=== PATIENT | male | born 1950 | race Caucasian/White ===

== ENCOUNTER 2020-05-14 22:11 | Observation (INO) | payer MEDICARE, OTHER ==
--- NOTE | 2020-05-14 22:41 | ED ---
Neck Injury/Pain HPI - General Chief Complaint: Neck Pain/Injury Stated Complaint: Neck Pain Time Seen by Provider: 05/14/20 22:31 Mode of arrival: ambulatory Limitations: no limitations - History of Present Illness Initial Comments: Jonh is a pleasant 70 male who presents to the ER today for evaluation of intractable neck pain. Patient reports on of last week he went for a jog, he subsequently had some achy pains in his leg and hip and states that a couple hours afterwards he felt a tightening in his neck. Patient reports is progressively worsened over the course of the weekend. He states that today he cannot move his neck at all and he has pain radiating down to his left arm. He has no numbness in arm no weakness just a burning pain with occasional tingling. Patient reports he has a history of chronic low back pain but no history of neck pain. He was seen in an urgent care this morning and received a shot of steroids and prescription for steroids and muscle relaxers but feels like he is getting worse. She denies any fevers, chills, nausea, vomiting any recent illness or injury. He denies any history of cancers. - Related Data Allergies Allergy/AdvReac Type Severity Reaction Status Date / Time No Known Allergies Allergy Verified 05/14/20 22:18 Review of Systems ROS Statement: Those systems with pertinent positive or pertinent negative responses have been documented in the HPI. ROS Other: All systems not noted in ROS Statement are negative. Past Medical History Past Medical History: Hypertension, Myocardial Infarction (non Q-wave) History of Any Multi-Drug Resistant Organisms: None Reported Additional Past Surgical History / Comment(s): back surgery. cardiac stent x 3. knee surgery Past Psychological History: No Psychological Hx Reported Smoking Status: Never smoker Past Alcohol Use History: Rare Past Drug Use History: None Reported General Exam - General Exam Comments Initial Comments: Physical Exam GENERAL: Appears uncomfortable, will not range his neck HENT: Normocephalic, Atraumatic. EYES: PERRL, EOMI PULMONARY: Unlabored respirations. CARDIOVASCULAR: RRR Warm and well perfused extremities ABDOMEN: Non-distended SKIN: No rashes or bruising : Deferred NEUROLOGIC: Alert and oriented Normal speech Normal gait Normal abduction/flexion/extension of the shoulders bilaterally Normal sensation in bilateral upper extremities MUSCULOSKELETAL: Looking forward, will not range his neck Full ROM of extremities No weakness in extremities, PSYCHIATRIC: No SI/HI Limitations: no limitations Course Vital Signs 05/14/20 05/15/20 22:12 02:25 Temperature 98.3 F 98.4 F Pulse Rate 79 70 Respiratory 18 16 Rate Blood Pressure 141/90 126/88 O2 Sat by Pulse 96 95 Oximetry Medical Decision Making - Medical Decision Making Patient was seen and evaluated history is obtained from patient Previously healthy 70-year-old male with what appears to be mechanical in his neck, physical exam does reveal some significant muscle spasm with no bony tenderness No focal neurologic deficits Given the patient's age CT scan was ordered for evaluation of the neck Patient was treated with Norflex and morphine IM Computed tomography scan shows multi-facet arthropathy, no significant acute abnormalities Patient was reevaluated and reports only minimal improvement, at this time I don't feel the patient is safe to go home given his limited range of motion and inability to tolerate movement. I don't feel the patient is safe to be discharged home on high-dose narcotics given his advanced age. Patient will be placed in observation unit for evaluation by orthopedic surgery and possibly pain management. Patient did have some improvement in pain after IV dilaudid - Lab Data Result diagrams: 05/15/20 00:50 05/15/20 00:50 Disposition Clinical Impression: Cervical radiculopathy, Neck pain Disposition: ADMITTED IP TO THIS HOSP Condition: Stable Is patient prescribed a controlled substance at d/c from ED?: No
[2020-05-14] MEDS ORDERED: MORPHINE SULFATE 4 MG/ML SYRINGE IM STA (23:36)
[2020-05-14] MEDS ORDERED: ORPHENADRINE 30 MG/ML 2 ML VIAL IM STA (23:36)
--- NOTE | 2020-05-14 23:49 | CT ---
EXAMINATION TYPE: CT cervical spine wo con DATE OF EXAM: 05/14/2020 COMPARISON: None HISTORY: neck pain CT DLP: 434.30 mGycm Automated exposure control for dose reduction was used. Images were obtained from the skull base to T1 vertebra with no contrast. Cervical vertebra have normal alignment. There is some spurring and mild disc space narrowing from C4 to C7. There is mild multilevel cervical hypertrophic facet arthropathy. Prevertebral soft tissues a re intact. The skull base is intact. There is normal aeration of the temporal bones. There is no evid ence of a fracture. IMPRESSION: Multilevel cervical spondylotic changes. No fracture seen.
[2020-05-15] MEDS ORDERED: HYDROmorphone 1 MG/ML 1 ML SYRINGE IVP STA (00:43)
[2020-05-15] MEDS ORDERED: NALOXONE 0.4 MG/ML 1 ML VIAL IV PRN (00:43)
[2020-05-15 00:59] LABS: Basophils # (A) 0.1 k/uL (0-0.2); Basophils % (A) 1 %; Eosinophils # (A) 0.2 k/uL (0-0.7); Eosinophils % (A) 2 %; HCT 45.8 % (39.0-53.0); HGB 15.2 gm/dL (13.0-17.5); Lymphocytes # (A) 1.7 k/uL (1.0-4.8); Lymphocytes % (A) 18 %; MCH 33.1 pg (25.0-35.0); MCHC 33.3 g/dL (31.0-37.0); MCV 99.5 fL (80.0-100.0); Mean Platelet Volume 6.9; Monocytes # (A) 0.6 k/uL (0-1.0); Monocytes % (A) 7 %; Neutrophils # (A) 6.7 k/uL (1.3-7.7); Neutrophils % (A) 71 %; Platelet Count 168 k/uL (150-450); RDW 13.5 % (11.5-15.5); WBC 9.4 k/uL (3.8-10.6)
[2020-05-15 01:12] LABS: ALT 30 U/L (4-49); AST 41 U/L (17-59); African American GFR (CKD) >90 (>60 ml/min/1.73 sqM); Albumin 4.4 g/dL (3.5-5.0); Alkaline Phosphatase 77 U/L (38-126); Anion Gap 8 mmol/L; Blood Urea Nitrogen 12 mg/dL (9-20); Calcium 9.4 mg/dL (8.4-10.2); Carbon Dioxide 24 mmol/L (22-30); Chloride 102 mmol/L (98-107); Glucose 128 mg/dL (74-99); Non-African American GFR(CKD) >90 (>60 ml/min/1.73 sqM); Potassium 4.4 mmol/L (3.5-5.1); Sodium 134 mmol/L (137-145); Total Bilirubin 1.6 mg/dL (0.2-1.3); Total Protein 7.2 g/dL (6.3-8.2)
[2020-05-15] MEDS ORDERED: MORPHINE SULFATE 4 MG/ML SYRINGE IV PRN (01:30)
[2020-05-15] MEDS: HYDROmorphone 0.5 MG/0.5 ML SYRINGE IVP PRN ×3 (04:12→20:43)
--- NOTE | 2020-05-15 09:57 | P.HPIM ---
History of Present Illness this is a pleasant 70 years old male with past medical history of coronary artery disease in 2012, status post 3 stents and he was on baby aspirin at 81 mg and Lipitor.he was told he is prediabetic last March. He does not follow up with PCP here and he recently moved from [place] last spring. Presents because of neck pain of 7 days duration, radiating across the back and to the left shoulder, left anterior chest and left lateral arm, associated with some limitation of abduction of the shoulder. He denies trauma. Also he is peeing a lot. no dizziness or abdominal pain, no problems with his bowel function. He walks with no difficulty. he denies smoking, alcohol or illicit drugs Vitas looks stable, labs include an unremarkable BMP except for mild low sodium at 134, creatinine normal, sugar is 128. Total bilirubin is 1.6, AST, ALT and other liver enzymes were normal, C-reactive protein is 31. CT of the cervical spine without contrast showing multilevel cervical spondylitic changes. No fracture seen. Review of Systems CONSTITUTIONAL: No fever, no malaise, no fatigue. HEENT: No recent visual problems or hearing problems. Denied any sore throat. CARDIOVASCULAR: No orthopnea, PND, no palpitations, no syncope. PULMONARY: No shortness of breath, no cough, no hemoptysis. GASTROINTESTINAL: No diarrhea, no nausea, no vomiting, no abdominal pain. Normoactive bowel sounds. NEUROLOGICAL: No headaches, no weakness, no numbness. HEMATOLOGICAL: Denies any bleeding or petechiae. GENITOURINARY: Denies any burning micturition, frequency, or urgency. MUSCULOSKELETAL/RHEUMATOLOGICAL: Denies any joint pain, swelling, or any muscle pain. ENDOCRINE: Denies any polyuria or polydipsia. Past Medical History Past Medical History: Hypertension, Myocardial Infarction (non Q-wave) Last Myocardial Infarction Date:: 2012 History of Any Multi-Drug Resistant Organisms: None Reported Additional Past Surgical History / Comment(s): back surgery. cardiac stent x 3. knee surgery Past Anesthesia/Blood Transfusion Reactions: No Reported Reaction Past Psychological History: No Psychological Hx Reported Smoking Status: Never smoker Past Alcohol Use History: Rare Past Drug Use History: None Reported Medications and Allergies Allergies Allergy/AdvReac Type Severity Reaction Status Date / Time No Known Allergies Allergy Verified 05/15/20 09:24 Physical Exam Vitals: Vital Signs Temp Pulse Pulse Resp BP BP Pulse Ox 05/15/20 07:36 98.2 F 75 14 128/83 93 L 05/15/20 03:02 98.1 F 67 16 150/96 94 L 05/15/20 02:25 98.4 F 70 16 126/88 95 05/14/20 22:12 98.3 F 79 18 141/90 96 Intake and Output 05/14/20 05/15/20 05/15/20 22:59 06:59 14:59 Other: Voiding Method Toilet Toilet Weight 88.451 kg 88.451 kg GENERAL: The patient is alert and oriented x3, not in any acute distress. Well developed, well nourished. HEENT: Pupils are round and equally reacting to light. EOMI. No scleral icterus. No conjunctival pallor. Normocephalic, atraumatic. No pharyngeal erythema. No thyromegaly. CARDIOVASCULAR: S1 and S2 present. No murmurs, rubs, or gallops. PULMONARY: Chest is clear to auscultation, no wheezing or crackles. ABDOMEN: Soft, nontender, nondistended, normoactive bowel sounds. No palpable organomegaly. -MUSCULOSKELETAL: No joint swelling or deformity. Limited abduction of the left shoulder with tenderness. Tenderness in the back to clinic EXTREMITIES: No cyanosis, clubbing, or pedal edema. NEUROLOGICAL: Gross neurological examination did not reveal any focal deficits. SKIN: No rashes. No petechiae Results CBC & Chem 7: 05/15/20 00:50 05/15/20 00:50 Labs: Abnormal Lab Results - Last 24 Hours (Table) 05/15/20 Range/Units 00:50 Sodium 134 L (137-145) mmol/L Creatinine 0.56 L (0.66-1.25) mg/dL Glucose 128 H (74-99) mg/dL Total Bilirubin 1.6 H (0.2-1.3) mg/dL C-Reactive Protein 31.0 H (<10.0) mg/L Thrombosis Risk Factor Assmnt - Choose All That Apply Any of the Below Risk Factors Present?: Yes Each Factor Represents 1 point: Obesity (BMI >25) Other Risk Factors: Yes Each Risk Factor Represents 2 Points: Age 61-74 years Other congenital or acquired thrombophilia - If yes, enter type in comment: No Thrombosis Risk Factor Assessment Total Risk Factor Score: 3 Thrombosis Risk Factor Assessment Level: Moderate Risk Assessment and Plan Assessment: neck pain, with left shoulder pain and limitation of movement High glucose, check hemoglobin A1c history of coronary artery disease status post 3 stents in 2012 Hyperlipidemia Plan: this is a pleasant 70 years old male who presents with neck pain. Orthopedic team were consulted. I discussed the case with them and he needs MRI of the cervical spine,consults pain management. check hemoglobin A1c, we will check urinalysis and with the patient on insulin sliding scale. Resume his aspirin and Lipitor. Continue with [place]. Labs and medication were reviewed.. Continue same treatment. Continue with symptomatic treatment. Resume home medication. Monitor lytes and vitals. DVT and GI prophylaxis. Further recommendations of the clinical course of the patient DVT prophylaxis: Subcutaneous heparin GI Prophylaxis: Pepcid PT/OT: Pending Prognosis is guarded
[2020-05-15] MEDS: HYDROcodone/APAP 5-325MG 1 EACH TAB PO PRN ×2 (10:01→23:37)
[2020-05-15] MEDS: methylPREDNISolone SOD SUCCI 125 MG/2 ML VIAL IV SCH ×3 (10:01→23:33)
[2020-05-15] MEDS: BACLOFEN 10 MG TAB PO PRN ×3 (10:01→20:43)
[2020-05-15 10:59] LABS: Appearance,Urine Clear (Clear); Bilirubin,Urine Negative (Negative); Blood,Urine Negative (Negative); Color,Urine Yellow; Glucose,Urine (UA) Negative (Negative); Ketones,Urine Negative (Negative); Leukocyte Esterase,Urine Negative (Negative); Nitrite,Urine Negative (Negative); PH, Urine 5.5 (5.0-8.0); Protein,Urine Negative (Negative); Specific Gravity,Urine 1.017 (1.001-1.035); Urobilinogen,Urine <2.0 mg/dL (<2.0)
[2020-05-15 11:36] LABS: Glucose,Whole Blood 108 mg/dL (75-99)
[2020-05-15] MEDS: INSULIN ASPART (NovoLOG) 100 UNIT/ML VIAL SQ SCH ×3 (11:36→21:08)
--- NOTE | 2020-05-15 13:02 | P.PAINCN ---
History of Present Illness - Reason for Consult Consult date: 05/15/20 - History of Present Illness This is 70 years old male, was admitted to [facility], because of acute onset of severe neck pain with radiation to the left upper extremity, started 7 days ago, patient reported that his symptoms started after he was jogging (usually he jogged every day ), and he started having severe neck pain with radiation to the chest wall on the left upper extremity, the pain is constant and increases with any neck movement or any left upper extremity movement, he had no motor deficit ,he had no sensory deficits, he denies any fever or night sweats and there is no change in bowel movement or urination, he had computed tomography scan of the cervical spine done that showed that he had cervical spondylosis. Past Medical History Past Medical History: Hypertension, Myocardial Infarction (non Q-wave) Last Myocardial Infarction Date:: 2012 History of Any Multi-Drug Resistant Organisms: None Reported Additional Past Surgical History / Comment(s): back surgery. cardiac stent x 3. knee surgery Past Anesthesia/Blood Transfusion Reactions: No Reported Reaction Past Psychological History: No Psychological Hx Reported Smoking Status: Never smoker Past Alcohol Use History: Rare Past Drug Use History: None Reported Medications and Allergies Home Medications Medication Instructions Recorded Confirmed Type Acetaminophen [Tylenol Arthritis] 650 mg PO Q12H PRN 05/15/20 05/15/20 History Aspirin EC [Ecotrin Low Dose] 81 mg PO DAILY 05/15/20 05/15/20 History Atorvastatin [Lipitor] 40 mg PO DAILY 05/15/20 05/15/20 History Cyclobenzaprine [Flexeril] 10 mg PO TID 05/15/20 05/15/20 History Glucosam/Timothy-Msm1/C/Ezequiel/Bosw 1 tab PO DAILY 05/15/20 05/15/20 History [Glucosamine-Chondroitin Tablet] L.acidoph,Paracasei, B.lactis 1 cap PO DAILY 05/15/20 05/15/20 History [Probiotic] RX: predniSONE See Taper PO DAILY 05/15/20 05/15/20 History lisinopriL [Zestril] 5 mg PO DAILY 05/15/20 05/15/20 History Allergies Allergy/AdvReac Type Severity Reaction Status Date / Time No Known Allergies Allergy Verified 05/15/20 09:24 Physical Exam Vitals: Vital Signs Temp Pulse Pulse Resp BP BP Pulse Ox 05/15/20 07:36 98.2 F 75 14 128/83 93 L 05/15/20 03:02 98.1 F 67 16 150/96 94 L 05/15/20 02:25 98.4 F 70 16 126/88 95 05/14/20 22:12 98.3 F 79 18 141/90 96 Intake and Output 05/14/20 05/15/20 05/15/20 22:59 06:59 14:59 Intake Total 880 Balance 880 Intake: Oral 480 Other 400 Other: Voiding Method Toilet Toilet Weight 88.451 kg 88.451 kg REVIEW OF ORGAN SYSTEMS: CONSTITUTIONAL: No fevers or chills. No recent weight loss. EYES: denies troubles with vision. HEENT: No difficulties with hearing. No nosebleeds. No difficulty swallowing. RESPIRATORY: Denies any troubles with breathing or dyspnea on exertion. CARDIOVASCULAR: Denies any chest pain, denies p alpitations, or recent heart attacks. GASTROINTESTINAL: Denies fatty food intolerance. Has change in bowel habits and gas bloat. GENITOURINARY: Denies any blood in urine. Has increased urinary frequency. NEUROLOGICAL: + Neck pain with radiation to the left upper extremity. No seizure disorders or headaches. MUSCULOSKELETAL: Has neck pain. SKIN:no skin cancer. No rash. PSYCHIATRIC: Denies current depression or suicidal thoughts. ENDOCRINE: Denies current thyroid disorders. Denies any blood sugar glucose intolerance. HEME/LYMPHATIC: Denies any lumps and bumps around the neck. History of deep venous thrombosis. ALLERGY/IMMUNOLOGY: No immunoglobulin therapy. No immune deficiencies. BREAST: Denies current breast lumps, pain or nipple discharge. Physical Examinations : Constitutiona : Cooperative , not in acute distress . HEENT : nech : supple , no Lymphadenopathy , normal thyroid size . : eyes no ptosis , no icterus, no photophobia . : ENT normal of hearing , normal oropharynx , no Thrush . Respiratory : Chest clear to auscultations Bilaterally , no wheezing , no Rhonchi . Cardiovascula : regular rate and rhythem , S1 , S2 , no S3 , no S4. Gastrointestina : abdomen soft no tenderness , bowel sounds , no organomegally . Genitourinary : Defferred . neurologic : Cranial nerve II to XII intact , no focal neurological deffecit . psychatric : alert , oriented X 3 , appropriate affect , intact judgment and insight . Lymphatic : no Lymphadenopathy . musculoskeltal : Cervical Spine motor stregnth in the deltoid and biceps, normal right side , normal Left side motor stregnth biceps and the wrist extensors normal right side ,normal left side . motor stregnth in the triceps muscle . normal Right side , normal Left side deep tendon reflexes= normal at the biceps , normal at Brachioradialis , normal at triceps. cervical facet loading test: Positive Bilaterally Spurling test= positive left Neck distraction test= positive left. Nicole sign= positive left. Shoulder joint full range of motion bilaterally there is no restriction, no crepitus Generalized muscle spasm in the left side cervical paraspinal muscles Tenderness over the anterior chest wall muscles Lumber spine moter stegnth lower extremities ,thigh and legs 5/5 Right side , 5/5 Left side deep tendon reflexes : normal Knee Jerk , normal ankle Jerk Results CBC & Chem 7: 05/15/20 00:50 05/15/20 00:50 Labs: Abnormal Lab Results - Last 24 Hours (Table) 05/15/20 05/15/20 Range/Units 00:50 11:34 Sodium 134 L (137-145) mmol/L Creatinine 0.56 L (0.66-1.25) mg/dL Glucose 128 H (74-99) mg/dL POC Glucose (mg/dL) 108 H (75-99) mg/dL Total Bilirubin 1.6 H (0.2-1.3) mg/dL C-Reactive Protein 31.0 H (<10.0) mg/L Comments: Computed tomography scan of the cervical spine= cervical spondylosis Assessment and Plan Plan: Assessment and plan=1-cervical radiculopathy 2-cervical spondylosis with cervical facet arthropathy without myelopathy. 3-myofascial pain syndrome and cervical area, and anterior chest wall pain Patient could benefit from cervical epidural steroid injection left paramedian approach, and also at the same time he could benefit from trigger point injections cervical and chest wall muscles, We should hold heparin, recommend continue [place] 5/325, and recommend continue muscle relaxant baclofen 10 mg 3 times a day Time with Patient: Greater than 30 PQRS Measure Charge Sheet PQRS Narrative: Blood Pressure [Left Arm] 128/83 Blood Pressure 126/88 Pain Intensity [Neck] 7 Pain Intensity 4 Pain Scale Used Numeric (1 - 10) Scale Used Numeric (1 - 10) Home Medications: Ambulatory Orders Acetaminophen [Tylenol Arthritis] 650 mg PO Q12H PRN 05/15/20 Aspirin EC [Ecotrin Low Dose] 81 mg PO DAILY 05/15/20 Atorvastatin [Lipitor] 40 mg PO DAILY 05/15/20 Cyclobenzaprine [Flexeril] 10 mg PO TID 05/15/20 Glucosam/Timothy-Msm1/C/Ezequiel/Bosw [Glucosamine-Chondroitin Tablet] 1 tab PO DAILY 05/15/20 L.acidoph,Paracasei, B.lactis [Probiotic] 1 cap PO DAILY 05/15/20 RX: predniSONE See Taper PO DAILY 05/15/20 lisinopriL [Zestril] 5 mg PO DAILY 05/15/20
--- NOTE | 2020-05-15 13:51 | P.CNOR ---
<Arturo Mckee - Last Filed: 05/15/20 13:46> History of Present Illness - [facility] Consult date: 05/15/20 Requesting physician: Nuvia Mcleod Consult reason: neck pain History of present illness: Patient is a very pleasant 70-year-old male who is seen and examined at bedside for the evaluation regards to his cervical spine. Patient is seen by Dr. Howell as well. He states he went for jog with a with new running shoes last week and began to experience some pain in his left hip and knee. He returned home and his symptoms subsided. Shortly after he began to experience pain radiating into his posterior cervical spine. This pain has significantly worsened since 05/11/2020. He presented to urgent care for further evaluation. He states he was given a steroid injection and muscle relaxer without any significant improvement in his symptoms. He states he has severe pain with any active range of motion of his cervical spine with pain radiating into the left chest and down the left upper extremity through the triceps, into the forearm, and into the entire left hand. He feel some weakness with the left upper extremity due to pain. He has difficulty with active range of motion of the lef t upper extremity. He denies specific injuries. He presented to the emergency department for further evaluation. CT imaging of the cervical spine was taken at that time. He was admitted for further evaluation through the emergency department as they did not feel he was safe enough to return home. He denies any right upper extremity weakness or radiculopathy. He does state his neck is significantly stiff and he has difficulty with active range of motion of the neck. He does have a history of hypertension and myocardial infarction. He states approximately 1 month ago he had some numbness in the bilateral feet. He had further workup at that time. He states he underwent Doppler imaging and the bilateral lower extremities as well as an echocardiogram without any significant findings. Past Medical History Past Medical History: Hypertension, Myocardial Infarction (non Q-wave) Last Myocardial Infarction Date:: 2012 History of Any Multi-Drug Resistant Organisms: None Reported Additional Past Surgical History / Comment(s): back surgery. cardiac stent x 3. knee surgery Past Anesthesia/Blood Transfusion Reactions: No Reported Reaction Past Psychological History: No Psychological Hx Reported Smoking Status: Never smoker Past Alcohol Use History: Rare Past Drug Use History: None Reported Medications and Allergies Home Medications Medication Instructions Recorded Confirmed Type Acetaminophen [Tylenol Arthritis] 650 mg PO Q12H PRN 05/15/20 05/15/20 History Aspirin EC [Ecotrin Low Dose] 81 mg PO DAILY 05/15/20 05/15/20 History Atorvastatin [Lipitor] 40 mg PO DAILY 05/15/20 05/15/20 History Cyclobenzaprine [Flexeril] 10 mg PO TID 05/15/20 05/15/20 History Glucosam/Timothy-Msm1/C/Ezequiel/Bosw 1 tab PO DAILY 05/15/20 05/15/20 History [Glucosamine-Chondroitin Tablet] L.acidoph,Paracasei, B.lactis 1 cap PO DAILY 05/15/20 05/15/20 History [Probiotic] lisinopriL [Zestril] 5 mg PO DAILY 05/15/20 05/15/20 History predniSONE See Taper PO DAILY 05/15/20 05/15/20 History Allergies Allergy/AdvReac Type Severity Reaction Status Date / Time No Known Allergies Allergy Verified 05/15/20 09:24 Physical Examination Physical exam: Patient is awake, alert, and oriented 3 Vital signs stable Good chest excursion with deep inspiration and expiration Examination of the cervical spine reveals skin is intact with no abrasions, lacerations, or bruises; no erythema, purulence or signs of infection Pain with palpation of the posterior cervical spine Significantly reduced range of motion of the cervical spine with adequate flexion, extension, and bilateral rotation Evidence of muscle spasm over the posterior cervical spine and trapezius Upper extremity strength 5/5 bilaterally for the right upper extremity Patient has full adequate range of motion of the left upper extremity but does have difficulty with biceps, triceps, and shoulder abduction on the left due to pain Motor strength of the left upper extremity is 5/5 including groundskeeper, interosseous, thumb extension No upper extremity hyperreflexia bilaterally Lara's sign negative upper extremity bilaterally Results Pertinent studies: CT of the cervical spine taken on 05/15/2020: C4-5, C5-6, and C6-7 degenerative disc disease; mild multilevel facet hypertrophy; no evidence of fracture; no evidence of spondylolisthesis - Labs Labs: Abnormal Lab Results - Last 24 Hours (Table) 05/15/20 05/15/20 Range/Units 00:50 11:34 Sodium 134 L (137-145) mmol/L Creatinine 0.56 L (0.66-1.25) mg/dL Glucose 128 H (74-99) mg/dL POC Glucose (mg/dL) 108 H (75-99) mg/dL Total Bilirubin 1.6 H (0.2-1.3) mg/dL C-Reactive Protein 31.0 H (<10.0) mg/L H & H 05/15/20 Range/Units 00:50 Hgb 15.2 (13.0-17.5) gm/dL Hct 45.8 (39.0-53.0) % Result Diagrams: 05/15/20 00:50 05/15/20 00:50 Assessment and Plan Assessment: Assessment: Acute intractable cervical pain Left upper extremity radiculopathy Left upper extremity weakness due to pain Muscle spasm of the cervical spine C4-5, C5-6, and C6-7 degenerative disc disease Cervical facet arthropathy Hypertension History of myocardial infarction (1) Spasm of cervical paraspinous muscle Current Visit: Yes Status: Acute Code(s): M62.838 - OTHER MUSCLE SPASM SNOMED Code(s): 975243957 (2) Radiculopathy affecting upper extremity Current Visit: Yes Status: Acute Code(s): M54.10 - RADICULOPATHY, SITE UNSPECIFIED SNOMED Code(s): 76387271 (3) Degeneration of intervertebral disc at C4-C5 level Current Visit: Yes Status: Acute Code(s): M50.321 - OTHER CERVICAL DISC DEGENERATION AT C4-C5 LEVEL SNOMED Code(s): 18887330 (4) Degeneration of intervertebral disc at C5-C6 level Current Visit: Yes Status: Acute Code(s): M50.322 - OTHER CERVICAL DISC DEGENERATION AT C5-C6 LEVEL SNOMED Code(s): 01738950 (5) Degeneration of intervertebral disc at C6-C7 level Current Visit: Yes Status: Acute Code(s): M50.323 - OTHER CERVICAL DISC DEGENERATION AT C6-C7 LEVEL SNOMED Code(s): 14863496 (6) Facet arthropathy, cervical Current Visit: Yes Status: Acute Code(s): M47.812 - SPONDYLOSIS W/O MYELOPATHY OR RADICULOPATHY, CERVICAL REGION SNOMED Code(s): 896794261 (7) Hypertension Current Visit: Yes Status: Acute Code(s): I10 - ESSENTIAL (PRIMARY) HYPERTENSION SNOMED Code(s): 73090832 (8) History of myocardial infarction Current Visit: Yes Status: Acute Code(s): I25.2 - OLD MYOCARDIAL INFARCTION SNOMED Code(s): 270261303 (9) Neck pain Current Visit: Yes Status: Acute Code(s): M54.2 - CERVICALGIA SNOMED Code(s): 77635316 Plan: Plan: 1. Patient has been discussed in detail Dr. Max Howell who is also seeing the patient at the bedside. Patient is experiencing severe debilitating cervical pain with spasm along with left upper extremity radiculopathy which has been worsening since 05/11/2020 without specific injury. He had a steroid injection as well as muscle relaxer medication through the urgent care without any significant improvement of the symptoms. She imaging does show degenerative changes of the cervical spine at C4-5, C5-6, and C6-7. He has significant difficulty with active range of motion in his left upper extremity knee mobility of the cervical spine. Given his significant symptoms and degenerative changes on imaging, we'll plan to obtain an MRI of the cervical spine for further evaluation. Following the MRI results, we will review this imaging and follow- up with an appropriate plan of care. We did discuss we try to work through conservative treatment initially before exploring the option of surgical intervention. Patient states he would like to work through conservative treatment options. We discussed we'll plan for consultation with pain management and potentially patient may be able to undergo an injection tomorrow. 2. Continue pain control with IV Dilaudid as prescribed. We will plan at [place] 5 mg 1 tablet every 6 hours as needed for pain. We will also add Solu-Medrol 80 mg IV every 8 hours. We will add baclofen 10 mg 3 times a day for muscle spasm. 3. Patient has been discussed with Dr. Berman in medicine as well. Time with Patient: Greater than 30 (Including obtaining history, physical examination, reviewing of imaging, and dictation.) <Karon Howell - Last Filed: 05/15/20 14:15> Physical Examination Osteopathic Statement: *. No significant issues noted on an osteopathic structural exam other than those noted in the History and Physical/Consult. Results - Labs Labs: Abnormal Lab Results - Last 24 Hours (Table) 05/15/20 05/15/20 Range/Units 00:50 11:34 Sodium 134 L (137-145) mmol/L Creatinine 0.56 L (0.66-1.25) mg/dL Glucose 128 H (74-99) mg/dL POC Glucose (mg/dL) 108 H (75-99) mg/dL Total Bilirubin 1.6 H (0.2-1.3) mg/dL C-Reactive Protein 31.0 H (<10.0) mg/L H & H 05/15/20 Range/Units 00:50 Hgb 15.2 (13.0-17.5) gm/dL Hct 45.8 (39.0-53.0) % Result Diagrams: 05/15/20 00:50 05/15/20 00:50 Assessment and Plan Plan: The patient is seen and examined today at bedside. He underwent his MRI today but the report is still pending. I reviewed the dictation above with Arturo Mojica our physician nurse practitioner physician assistant and I am in agreement with the dictation above. The MRI shows evidence of significant disc degeneration at C4 5 C5 6 and C6 7. There is disc protrusion at C67. There is broad-based disc protrusion at C5 6 with right foraminal stenosis. There may be some posterior annular fissure at C5 6. There is no specific extruded fragments at that level. At C4 5 there is a central disc herniation with some effacement anterior thecal sac without significant foraminal stenosis. There is no evidence of cord signal change. The official reading is still pending. Acute neck pain with left upper extremity radiculopathy. Degenerative disc disease cervical spine No specific extruded disc herniation or severe foraminal stenosis. No evidence of myelomalacia or cord syndrome I do not think the patient requires urgent surgical intervention. He has significant pain in his neck with his incapacitating pain at his upper extremities well. His imaging shows some disc protrusion and a annular fissure which may be causing the acute flareup for his neck and upper extremities worse on left than right. Imaging shows a bit more stenosis at C5 6 on the right than on the left of his symptoms are primarily towards his left side. He has been getting workup for other cardiac or thoracic causes but this does seem articular in nature for him. He may be having some small benefit with the IV steroid and he should continue that. Think that he could do well with epidural steroid injection. Pain management has seen him and they're planning an epidural steroid injection for him tomorrow and I think that is appropriate. Hopefully he'll be able to be discharged home if he is more comfortable after the injection with close follow-up as an outpatient. He'll likely need tapering oral steroid as outpatient as well.
--- NOTE | 2020-05-15 14:37 | MR ---
EXAMINATION TYPE: MR cervical spine wo con DATE OF EXAM: 05/15/2020 1:06 PM COMPARISON: NONE HISTORY: Left UE radiculopathy; cervical pain Multiplanar MultiSpin echo imaging of the cervical spine was performed. Comparison: none C2-C3: No evidence for degenerative disc disease. No disc bulge/herniation or protrusion. No Canal stenosis. Foramina are patent bilaterally. C3-C4: No evidence for degenerative disc disease. No disc bulge/herniation or protrusion. No Canal stenosis. Foramina are patent bilaterally. C4-C5: There is evidence of moderate disc desiccation. Posterocentral disc herniation with effacement of the ventral thecal sac. Ventral cord contact noted with mild central stenosis. No compressive mye lopathy identified at this time. Degenerative change of the cervical apophyseal joints resulting in b ilateral foraminal encroachment. C5-C6: Moderate disc desiccation with the right lateral disc bulge and effacement of the ventral thec al sac. There is mild central stenosis. Bilateral foraminal encroachment seen. C6-C7: Moderate disc desiccation with posterior disc bulge. Mild effacement ventral thecal sac. No ev idence for central stenosis. Bilateral foraminal encroachment. No disc herniation seen at this level. C7-T1: No evidence for degenerative disc disease. No disc bulge/herniation or protrusion. No Canal stenosis. Foramina are patent bilaterally. Cervical segments are intact. There is normal alignment. Cervical spinal cord is of normal signal. Craniovertebral junction relationships are within normal limits. IMPRESSION: 1. Multilevel degenerative disc disease. 2. Central stenosis at C4-5 and C5-6 as discussed above.
[2020-05-15 16:38] LABS: Glucose,Whole Blood 226 mg/dL (75-99)
[2020-05-15 18:45] LABS: Hemoglobin A1C 5.8 % (4.0-6.0)
[2020-05-15] MEDS: FAMOTIDINE 20 MG/2 ML VIAL IV SCH (20:44)
[2020-05-15 20:57] LABS: Glucose,Whole Blood 176 mg/dL (75-99)
[2020-05-15] MEDS ORDERED: HEPARIN SODIUM,PORCINE 5,000 UNIT/ML 1 ML VIAL SQ SCH (21:00)
[2020-05-16 06:35] LABS: Glucose,Whole Blood 144 mg/dL (75-99)
[2020-05-16 07:27] VITALS: RESP 16
[2020-05-16 07:56] VITALS: TEMP 97.7
[2020-05-16] MEDS ORDERED: LACTATED RINGERS 1,000 ML IV ONE (07:56)
[2020-05-16] MEDS ORDERED: ROPIVACAINE 5MG/ML 20ML VIAL ONE (08:00)
[2020-05-16] MEDS ORDERED: fentaNYL (PF) 50 MCG/ML 2 ML AMP ONE (08:00)
[2020-05-16] MEDS ORDERED: DEXAMETHASONE SOD PHOSPHATE 10 MG/ML 1 ML VIAL ONE (08:00)
[2020-05-16] MEDS ORDERED: IOPAMIDOL M200 10 ML VIAL ONE (08:00)
[2020-05-16] MEDS ORDERED: MIDAZOLAM 2 MG/2 ML VIAL ONE (08:00)
--- NOTE | 2020-05-16 08:26 | P.PCN ---
Date of Procedure: 05/16/20 Procedure(s) Performed: . PROCEDURE 1. Cervical epidural steroid injection under fluoroscopic guidance, C7-T1 (fluoroscopy images available in the radiology department ) 2. Cervical epidurogram. 3-trigger point injections left-sided cervical paraspinal muscles ( total 3 trigger point injected ) PREOPERATIVE DIAGNOSIS: 1- Cervical Degenerative Disc Diseases 2- Cervical radiculopathy., 3-cervical spondylosis with cervical Facet arthropathy without myelopathy 4-myofascial pain syndrome cervical paraspinal muscles and anterior chest wall POSTOPERATIVE DIAGNOSIS: : 1- Cervical Degenerative Disc Diseases , 2- Cervical radiculopathy. 3-,cervical spondylosis with cervical Facet arthropathy without myelopathy. 4-myofascial pain syndrome cervical paraspinal muscles and anterior chest wall ANESTHESIA: Local anesthesia with lidocaine 1 % , and moderate sedation, with Versed 2 mg and Fentanyl 50 mcg. EBL 0 PROCEDURE INDICATION: The patient with neck pain and radiculitis unresponsive to conservative treatment consents for procedure. PROCEDURE DESCRIPTION / TECHNIQUE: The patient was seen and identified in the preoperative area. Risks, benefits, complications, including but not limited to infections ,bleeding , allergic reactions to the medications ,and not complete pain releife, and alternatives were discussed with the patient, the patient agreed to proceed with the procedure and signed the consent. Patient was taken to the OR and time out was completed. The patient was placed in the prone position on the procedure table. A pillow was placed under the patients chest to increase the cervical interlaminar space. The cervical area was prepped and draped in the usual sterile fashion. Vital signs were closely monitored during the procedure. Conscious sedation was used during the procedure to decrease patients anxiety. Using anterior-posterior fluoroscopy, the C7-T1 interlaminar space was identified and the skin over this site was marked and then infiltrated with 1% lidocaine subcutaneously. Subsequently, a 20-gauge 3-1/2-inch Tuohy epidural needle was inserted and advanced toward the epidural space by means of the ``hanging-drop technique and guided by AP and lateral fluoroscopy. The correct needle position in the epidural space was verified with the injection of 2 mL of the water soluble contrast dye Isovue-200 and observing an excellent epidurogram with the epidural spread of the dye, after negative aspiration for blood and CSF and in the absence of paresthesias. Again after negative aspiration, mixture containing 20 mg Dexamethasone and 2 ml of preservative- free normal saline injected and a washout of epidurogram was seen. Needle was withdrawn intact, Then after that 3 trigger points identified in the left-sided cervical para spinal muscles each one of them injected with ropivacaine 0.5% 3 mL using 25- gauge needle, injection done under sterile technique and injection of after negative aspiration under was no paresthesia during the injection Complications= none. Disposition= patient was placed in supine position and transferred to the recovery room area in stable condition and there was no evidence of upper or lower extremity motor or sensory deficit after the procedure patient was discharged from recovery room after discharge criteria met and home discharge instructions was given by the staff and patient will follow with the pain clinic in 2-4 weeks
[2020-05-16] MEDS: methylPREDNISolone SOD SUCCI 125 MG/2 ML VIAL IV SCH (08:46)
[2020-05-16] MEDS: FAMOTIDINE 20 MG/2 ML VIAL IV SCH (08:47)
[2020-05-16] MEDS: INSULIN ASPART (NovoLOG) 100 UNIT/ML VIAL SQ SCH (08:47)
[2020-05-16] MEDS: HYDROcodone/APAP 5-325MG 1 EACH TAB PO PRN (08:51)
[2020-05-16] MEDS ORDERED: ASPIRIN 81 MG PO SCH (09:00)
[2020-05-16] MEDS ORDERED: ATORVASTATIN 40 MG TAB PO SCH (09:00)
[2020-05-16 09:27] VITALS: BP 121/59; PULSE 68
--- NOTE | 2020-05-16 10:29 | P.PN ---
Progress Note - Text Progress Note Date: 05/16/20 the patient is seen and examined at bedside. He is feeling better. He feels his medicines and injections have helped him. His neck is improved as is his left arm. He has good strength in his left arm. He feels comfortable going home. He saw has some soreness at the area and we can continue his oral tapering dose and some pain medications if he needs it. I'll see him back in the office in approximately 2 weeks' time or sooner if he is having worsening problems.
--- NOTE | 2020-05-16 15:09 | FL ---
Fluoroscopy HISTORY: Pain 7 seconds fluoroscopy time supplied to the referring clinician. 1 intraoperative C-arm images docume nt the procedure. See dictated report from anesthesia.
--- NOTE | 2020-05-17 00:13 | P.DS ---
Providers Date of admission: 05/15/20 00:45 Attending physician: Hang Domínguez Consults: 05/15/20 00:44 Consult Physician Urgent Consulting Provider: Karon Howell Consult Reason/Comments: neck pain, atraumatic Do you want consulting provider notified?: Yes, Notify in am Primary care physician: Stated None Hospital Course: Diagnoses: neck pain, with left shoulder pain and limitation of movement Due to C4-5, C5-6, and C6-C7 degenerative disc disease High glucose, with normal hemoglobin A1c at 5.8% history of coronary artery disease status post 3 stents in 2012 Hyperlipidemia Hospital course: this is a pleasant 70 years old male with past medical history of coronary artery disease in 2012, status post 3 stents and he was on baby aspirin at 81 mg and Lipitor.he was told he is prediabetic last March. He does not follow up with PCP here and he recently moved from [place] last spring. Presents because of neck pain of 7 days duration, radiating across the back and to the left shoulder, left anterior chest and left lateral arm, associated with some limitation of abduction of the shoulder. He denies trauma. Patient underwent imaging including MRI of the cervical spine showing multilevel degenerative disease, please see report. Patient has been evaluated by orthopedic and pain management team, he received pain medicine, IV Solu-Medrol, muscle relaxant and epidural steroid injection by pain management service, next day his neck pain is significantly improved and his left hand movement is back to normal with only minimal pain left and his back of the neck. Patient was cleared for discharge by orthopedic team who will provide him with tapered steroids and pain pills upon discharge Problems and management plan were discussed with the patient and he verbalized understanding and acceptance Patient was found stable and can be discharged home however he needs follow-up as an outpatient. Patient was instructed to follow up with a new PCP suggested for him with Dr. Merino within one week and patient agrees. Also he was instructed to follow up with Dr. Howell the spine surgeon within 2 weeks and he agrees to call and make his appointments Gen: patient is a AAOx3, no distress CVS: S1-S2, RRR, no murmur Lungs: B/L CTA, no wheezing Abdomen: soft, no distention, no tenderness, positive bowel sounds Extremity: no leg edema or induration Time spent more than 35 minutes Patient Condition at Discharge: Stable Plan - Discharge Summary New Discharge Prescriptions: New Aspirin 81 mg PO DAILY #30 chew Famotidine [Pepcid] 20 mg PO BID #60 tablet HYDROcodone/APAP 5-325MG [[place] 5] 1 each PO Q6HR PRN #28 tab PRN Reason: Pain predniSONE [Deltasone] See Taper PO DIRECTED #24 tab Baclofen [Lioresal] 10 mg PO TID PRN #30 tablet PRN Reason: Muscle Spasm Continue predniSONE See Taper PO DAILY L.acidoph,Paracasei, B.lactis [Probiotic] 1 cap PO DAILY Glucosam/Timothy-Msm1/C/Ezequiel/Bosw [Glucosamine-Chondroitin Tablet] 1 tab PO DAILY Aspirin EC [Ecotrin Low Dose] 81 mg PO DAILY Acetaminophen [Tylenol Arthritis] 650 mg PO Q12H PRN PRN Reason: Pain Atorvastatin [Lipitor] 40 mg PO DAILY #30 lisinopriL [Zestril] 5 mg PO DAILY #30 tab Discontinued Cyclobenzaprine [Flexeril] 10 mg PO TID Discharge Medication List Acetaminophen [Tylenol Arthritis] 650 mg PO Q12H PRN 05/15/20 [History] Aspirin EC [Ecotrin Low Dose] 81 mg PO DAILY 05/15/20 [History] Glucosam/Timothy-Msm1/C/Ezequiel/Bosw [Glucosamine-Chondroitin Tablet] 1 tab PO DAILY 05/15/20 [History] L.acidoph,Paracasei, B.lactis [Probiotic] 1 cap PO DAILY 05/15/20 [History] predniSONE See Taper PO DAILY 05/15/20 [History] Aspirin 81 mg PO DAILY #30 chew 05/16/20 [Rx] Atorvastatin [Lipitor] 40 mg PO DAILY #30 05/16/20 [Rx] Baclofen [Lioresal] 10 mg PO TID PRN #30 tablet 05/16/20 [Rx] Famotidine [Pepcid] 20 mg PO BID #60 tablet 05/16/20 [Rx] HYDROcodone/APAP 5-325MG [[place] 5] 1 each PO Q6HR PRN #28 tab 05/16/20 [Rx] lisinopriL [Zestril] 5 mg PO DAILY #30 tab 05/16/20 [Rx] predniSONE [Deltasone] See Taper PO DIRECTED #24 tab 05/16/20 [Rx] Follow up Appointment(s)/Referral(s): Aruna Chu MD [REFERRING] - 1 Week Karon Howell DO [Doctor of Osteopathic Medicine] - 2 Weeks None,Stated [Primary Care Provider] - 1-2 days Patient Instructions/Handouts: Lisinopril (By mouth), Famotidine (By mouth), Hydrocodone/Acetaminophen (By mouth), Prednisone (By mouth), Baclofen (By mout h), Probiotic (By mouth), Neck Pain (DC) Activity/Diet/Wound Care/Special Instructions: low carbohydrate diet activity is limited till you see your doctor Hold aspirin for next day or so. Discharge/Stand Alone Forms: Anes Pain/[place] Instructions Discharge Disposition: HOME SELF-CARE
== END 2020-05-16 11:18 | disposition home or self-care (01) ==
LOC: EC 22:11 → 1SOBS 05-15 00:45
PROVIDERS: ADMIT Hospitalist; ATTEND Hospitalist
DX: M50.121 Cervical disc disorder at C4-C5 level with radiculopathy (principal); M47.22 Other spondylosis with radiculopathy, cervical region; M79.18 Myalgia, other site; R07.89 Other chest pain; R73.09 Other abnormal glucose; I25.10 Atherosclerotic heart disease of native coronary artery without angina pectoris; E78.5 Hyperlipidemia, unspecified; G89.29 Other chronic pain; M54.5 Low back pain; I10 Essential (primary) hypertension; I25.2 Old myocardial infarction; E66.9 Obesity, unspecified; Z68.28 Body mass index [BMI] 28.0-28.9, adult; Z98.890 Other specified postprocedural states; Z95.5 Presence of coronary angioplasty implant and graft; Z79.82 Long term (current) use of aspirin; Z79.899 Other long term (current) drug therapy
CPT/HCPCS: 96374; 96375; 96376; 96372; 99284; 80053; 85025; 86140; 81003; 83036; 72125; 72141; 20553; 62321; G0378 ×2; J2250; J2270; J1100; J2360; J2930 ×2; J3010; J1170 ×2; Q9966; J2795; 99152

== ENCOUNTER 2020-05-30 09:38 | Day surgery (SDC) | payer MEDICARE, OTHER ==
[2020-05-28 13:08] VITALS: BMI 27.5
[~2020-05-30 09:38] MED LIST: LACTATED RINGERS 1,000 ML IV SCH
[2020-05-30 09:55] VITALS: TEMP 97.2
[2020-05-30] MEDS ORDERED: LIDOCAINE 1% (10MG/ML) FOR IV START INTRADERMA ONE (10:00)
[2020-05-30] MEDS ORDERED: fentaNYL (PF) 50 MCG/ML 2 ML AMP ONE (10:11)
[2020-05-30] MEDS ORDERED: MIDAZOLAM 2 MG/2 ML VIAL ONE (10:11)
[2020-05-30] MEDS ORDERED: DEXAMETHASONE SOD PHOSPHATE 10 MG/ML 1 ML VIAL ONE (10:11)
[2020-05-30] MEDS ORDERED: IOPAMIDOL M200 10 ML VIAL ONE (10:11)
--- NOTE | 2020-05-30 10:22 | P.PCN ---
Date of Procedure: 05/30/20 Surgeon: Dima Turner Pathology: none sent Condition: stable Disposition: PACU Description of Procedure: PROCEDURE 1. Cervical epidural steroid injection under fluoroscopic guidance, C7-T1 left paramedian approach. 2. Cervical epidurogram. : PREOPERATIVE DIAGNOSIS: Cervical radiculopathy, cervical spondylosis without myelopathy POSTOPERATIVE DIAGNOSIS: : Same as above ANESTHESIA: Local anesthesia with 1% lidocaine and IV moderate conscious sedation with Versed and Fentanyl . EBL 0 PROCEDURE INDICATION: The patient with neck pain and radiculopathy unresponsive to conservative treatment consents for procedure. PROCEDURE DESCRIPTION / TECHNIQUE: The patient was seen and identified in the preoperative area. Risks, benefits, complications, including but not limited to infections ,bleeding , allergic reactions to the medications ,and not complete pain relief, and alternatives were discussed with the patient, the patient agreed to proceed with the procedure and signed the consent. Patient was taken to the OR and time out was completed. The patient was placed in the prone position on the procedure table. A pillow was placed under the patients chest to increase the flexion of the cervical spine . The cervical area was prepped and draped in the usual sterile fashion. Vital signs were closely monitored during the procedure. Conscious sedation was used during the procedure to decrease patients anxiety. Using anterior-posterior fluoroscopy, the C7-T1 interlaminar space was identified and the skin over this site was marked and then infiltrated with 1% lidocaine subcutaneously. Subsequently, a 20-gauge 3-1/2-inch Tuohy epidural needle was inserted and advanced toward the epidural space by means of loss of resistance to air technique and guided by AP and lateral fluoroscopy. The needle tip contacted the lamina of T1 vertebra first, then it was walked off bone and into the epidural space using the loss of to air and fluoroscopic guidance to identify the epidural space. The correct needle position in the epidural space was verified with the injection of 1 mL of the water soluble contrast dye Isovue and observing an excellent epidurogram with the epidural spread of the dye, after negative aspiration for blood and CSF and in the absence of paresthesias. Again after negative aspiration, a 2 ml mixture containing 10 mg of Decadron and 1 ml of preservative free Normal Saline solution was injected and a washout of epidurogram was seen. Needle was withdrawn intact, skin was cleansed, and bandages were applied. A copy of the needle placement picture was saved to the fluoroscopy machine.
[2020-05-30] MEDS ORDERED: IV FLUID CONTINUATION 1,000 ML IV ONE (10:28)
[2020-05-30 10:32] VITALS: RESP 18
--- NOTE | 2020-05-30 10:37 | FL ---
EXAMINATION TYPE: FL guided pain mgmt statistic DATE OF EXAM: 05/30/2020 HISTORY: Fluoroscopy time 4 seconds of fluoroscopy provided. IMPRESSION: 1. Fluoroscopy time.
[2020-05-30 10:46] VITALS: BP 128/84; PULSE 95
== END 2020-05-30 10:59 | disposition home or self-care (01) ==
LOC: ORPAIN 09:38
PROVIDERS: ATTEND Anesthesiology
DX: M47.22 Other spondylosis with radiculopathy, cervical region (principal); I10 Essential (primary) hypertension; I25.10 Atherosclerotic heart disease of native coronary artery without angina pectoris
CPT/HCPCS: 62321; J2250; J1100; J3010; Q9966

== ENCOUNTER → 2020-06-24 | Outpatient (CLI) | payer MEDICARE, OTHER ==
[2020-06-24 10:30] VITALS: BP 130/85; PULSE 64; RESP 16; TEMP 97.7
--- NOTE | 2020-06-24 10:54 | P.PN ---
Subjective Progress Note Date: 06/24/20 This is a 70-year-old gentleman with history of neck pain with radiation to the left arm. The patient had 2 cervical epidural steroid injection which gave him significant relief of his pain. He rates his pain as 1 out of 10 today in his neck with no numbness or tingling or any weakness in the upper extremities. Patient denies new-onset weakness, bowel/bladder incontinence, or any other signs or symptoms of cauda equina syndrome. There are no signs of acute into xication, and no indications of medication diversion or overuse. In addition to above, 13-point review of systems is also negative for chest pain, shortness of breath, changes in vision, changes in hearing, new onset weakness, abdominal pain, diarrhea, extreme fatigue, malaise, fever, skin changes, homicidal or suicidal ideation, or bowel or bladder incontinence. Vital Signs: Reviewed in EMR Gen: AAOx3, NAD HEENT: PERRLA,hearing grossly normal Pulm: resp unlabored Neck: supple, trachea midline Neuro exam of the upper extremities: Normal muscle strength bilaterally and symmetrically Mild tenderness in the cervical paravertebral musculature on the left side Neuro: CN II-XII grossly intact, Imaging: Reviewed in EMR/chart Assessment: Left cervical radiculopathy Plan: 1. Explanation: Opioid and psychological risk scores were reviewed. Diagnoses, prognoses, and multiple treatment options including but not limited to physical therapy, interventional therapies, adjuvant medical therapies, narcotic medication therapies, and surgery were discussed with the patient and all questions were answered to the patient's satisfaction. 2. Opioid agreement: Signed with the patient and the patient is warned not to use opioids while driving or before driving and not to combine opioids with benzodiazepines or alcohol. 3. Counseling: The patient was counseled extensively on SMOKING CESSATION, BODY MASS INDEX, EXERCISE. Specifically, the patient was instructed regarding the importance of smoking cessation, obesity, and exercise in the context of both chronic pain and overall health. 4. Procedures: None 5. Consultations: None 6. Investigations: None 7. Medications: None 8. Disposition: Return to clinic as needed 9. Maps were reviewed and were appropriate. Objective - Vital Signs Vital signs: Vital Signs Temp 97.7 F 06/24/20 10:23 Pulse 64 06/24/20 10:23 Resp 16 06/24/20 10:23 BP 130/85 06/24/20 10:23 Pulse Ox
== END | disposition home or self-care (01) ==
LOC: PNWHC3 09:49
PROVIDERS: ATTEND Anesthesiology
DX: M54.12 Radiculopathy, cervical region (principal)
CPT/HCPCS: 99211

== ENCOUNTER → 2021-02-24 | Outpatient (CLI) | payer MEDICARE, OTHER ==
[2021-02-24 08:20] VITALS: BP 121/73; PULSE 57; RESP 18; TEMP 97.6
--- NOTE | 2021-02-24 08:33 | P.PN ---
Subjective Progress Note Date: 02/24/21 This is a follow-up visit for this 70 years old male with seizure of neck pain is diagnosed with cervical degenerative disc disease, critical spinal stenosis and cervical spondylosis, May 2020 with done cervical epidural steroid injections 2, his neck pain significantly after that and is currently having the same pain in the cervical area, he had some numbness and tingling sensation in the upper extremity mainly on the left side, he denies any motor or sensory deficit, he denies any fever or night sweats he denies any change in the bowel movement on examination Objective - Vital Signs Vital signs: Vital Signs Temp 97.6 F 02/24/21 08:15 Pulse 57 L 02/24/21 08:15 Resp 18 02/24/21 08:15 BP 121/73 02/24/21 08:15 Pulse Ox 98 02/24/21 08:15 - Exam Constitutiona : Cooperative , not in acute distress . HEENT : nech : supple , no Lymphadenopathy , normal thyroid size . : eyes no ptosis , no icterus, no photophobia . . neurologic : Cranial nerve II to XII intact , no focal neurological deffecit . psychatric : alert , oriented X 3 , appropriate affect , intact judgment and insight . Lymphatic : no Lymphadenopathy . musculoskeltal : Cervical Spine motor stregnth in the deltoid and biceps, normal right side , normal Left side motor stregnth biceps and the wrist extensors normal right side ,normal left side . motor stregnth in the triceps muscle . normal Right side , normal Left side deep tendon reflexes= normal at the biceps , normal at Brachioradialis , normal at triceps. cervical facet loading test: Positive Bilaterally Spurling test= positive left Neck distraction test= positive left. Nicole sign= positive left. Shoulder joint full range of motion bilaterally there is no restriction, no crepitus Generalized muscle spasm in the left side cervical paraspinal muscles Tenderness over the anterior chest wall muscles Lumber spine moter stegnth lower extremities ,thigh and legs 5/5 Right side , 5/5 Left side deep tendon reflexes : normal Knee Jerk , normal ankle Jerk . MRI of the cervical spine= multilevel cervical degenerative disc disease m ultilevel cervical spinal stenosis Assessment and Plan Plan: Assessment and plan=1-cervical spinal stenosis. 2-cervicals degenerative disc disease. 3-cervical spondylosis. Schink and benefits from cervical epidural steroid injection C7-T1. - PQRS measures = - Patient's medications are documented in the chart. -Tobacco use is negative and counseling.Given. -Patient's has not received pneumococcal vaccine. -Advanced care planning discussed, patient not eligible. -Opiate contract not signed. -Pain positive and follow-up visit/procedure is scheduled. -Patient's blood pressure measured [ 121/73 ] , and documented in the record ,and patient will follow up with the primary care. -Patient's weight was measured and body mass index [25 ] within the normal limits and counseling was done. and patient instructed to follow-up with the primary care physician. -Patient was not identified as an unhealthy alcohol user Time with Patient: Less than 30
== END ==
LOC: PNWHC3 07:56
PROVIDERS: ATTEND Specialist
DX: M48.02 Spinal stenosis, cervical region (principal); M50.30 Other cervical disc degeneration, unspecified cervical region; M47.812 Spondylosis without myelopathy or radiculopathy, cervical region
CPT/HCPCS: 99211

== ENCOUNTER → 2021-03-31 | Outpatient (CLI) | payer MEDICARE, OTHER ==
--- NOTE | 2021-03-31 09:53 | US ---
EXAMINATION TYPE: US duplex aorta DATE OF EXAM: 03/31/2021 COMPARISON: NONE CLINICAL HISTORY: Z13.6 SCREENING FOR AAA. EXAM MEASUREMENTS: Abdominal Aorta: Proximal: 1.8 x 1.8 cm Mid: 1.8 x 2.0 cm Distal: 1.8 x 1.9 cm Bifurcation: 1.1 cm 1.5 cm IMPRESSION: No sonographic evidence for abdominal aortic aneurysm.
== END | disposition home or self-care (01) ==
LOC: RADUSWWP 08:49
PROVIDERS: ATTEND Internal Medicine
DX: Z13.6 Encounter for screening for cardiovascular disorders (principal)
CPT/HCPCS: 93979

== ENCOUNTER → 2022-04-01 | Outpatient (CLI) | payer MEDICARE, OTHER ==
--- NOTE | 2022-04-02 05:04 | MR ---
EXAMINATION TYPE: MR brain and iac wo/w con DATE OF EXAM: 04/01/2022 COMPARISON: None HISTORY: NERVE DAMAGE CONTRAST: Standard multiplanar, multisequence MRI departmental protocol images were obtained without contrast a nd with 7ML mL intravenous Gadavist gadolinium contrast. Ventricles have normal size. There is no mass effect or midline shift. No sign of intracranial hemorr nabeel. Diffusion images show no evidence of an acute infarct. Corpus callosum is intact. On the FLAIR images there are multiple areas of mild increased signal in the periventricular white ma tter that measure up to 5 mm. These are more concentrated around the occipital horns of the lateral v entricles. Total number is less than 20. The brainstem is intact. Sella turcica is normal. No eviden ce of orbital mass. The internal auditory canals appear normal. No evidence of cerebellopontine angle mass. The acoustic nerve and vestibular nerve appear normal. There is no pathologic enhancement. No pathologic posterior fossa enhancement. There is normal enhancement of the venous sinuses. IMPRESSION: There is periventricular white matter changes that is probably age-related matter disease. I do not s ee a pattern of demyelinating disease. This could be microvascular ischemia. There is minimal cerebra l atrophy. No evidence of focal posterior fossa abnormality.
== END | disposition home or self-care (01) ==
LOC: RADMRIMAIN 18:23
PROVIDERS: ATTEND Otolaryngology
DX: G31.9 Degenerative disease of nervous system, unspecified (principal); H91.90 Unspecified hearing loss, unspecified ear
CPT/HCPCS: 70553; A9585

== ENCOUNTER → 2023-01-14 | Outpatient (CLI) | payer MEDICARE, OTHER ==
--- NOTE | 2023-01-14 15:02 | CT ---
EXAMINATION TYPE: CT soft tissue neck wo/w con CT DLP: 925.40 mGycm, Automated exposure control for dose reduction was used. DATE OF EXAM: 01/14/2023 2:42 PM COMPARISON: 05/14/2020 CT CLINICAL INDICATION:Male, 72 years old with history of J38.6 R13.10; PHH, stenosis of larynx and MARSHA. TECHNIQUE: Standard enhanced CT of the neck. Axial sections with coronal and sagittal reformats were obtained. Contrast used:100 mL of Isovue 300 without and with IV Contrast, Oral contrast used: none. FINDINGS: Brain: Visualized portions are grossly unremarkable. Orbits: Unremarkable Sinuses: Grossly unremarkable. Spaces of the neck: Visualized portions of the larynx and airway appear patent. The larynx appears sy mmetric. No suspicious or organizing fluid collection. Musculoskeletal: No acute osseous pathology. Lymph nodes: Multiple nonenlarged lymph nodes are seen along both anterior chains of the neck. Vascular structures: Patent with atherosclerotic plaque of the internal carotid arteries at the bifur cation. There is approximately 25% stenosis at the carotid bifurcations. The remainder of the visuali zed osseous structures are patent. No intracranial aneurysm or high-grade stenosis visualized. Thoracic Inlet/airway: Airway is patent. The lung apices are clear. Soft tissues/Thyroid: Thyroid and remainder of the soft tissues are unremarkable. Other: none. IMPRESSION 1. No evidence of airway stenosis. The larynx appears symmetric. 2. At least 25% stenosis of the bilateral carotid bifurcation secondary to calcified and noncalcifie d plaque.
== END | disposition home or self-care (01) ==
LOC: RADCTMAIN 13:19
PROVIDERS: ATTEND Otolaryngology
DX: J38.6 Stenosis of larynx (principal); I65.23 Occlusion and stenosis of bilateral carotid arteries
CPT/HCPCS: 82565; 84520; 70492; 36415; Q9967